=== PATIENT | male | born 1940 | race Caucasian/White ===

== ENCOUNTER → 2023-08-16 08:45 | Outpatient (REF) | payer OTHER, SELFPAY ==
[2023-08-16 10:06] LABS: % Basophils 0.7 % (0-2); % Eosinophils 3.6 % (0-6); % Immature Granulocytes 0.2 % (0-0.5); % Lymphocytes 40.8 % (20.5-51.1); % Monocytes 10.4 % (1.7-9.3); % Neutrophils 44.3 % (42.2-75.2); Absolute Eosinophils 0.2 10^3/uL (0-0.7); Absolute Lymphocytes 1.7 10^3/uL (1.2-3.4); Absolute Monocytes 0.4 10^3/uL (0.1-0.6); Absolute Neutrophils 1.9 10^3/uL (1.4-6.5); Hematocrit 40.4 % (39.0-52.0); Hemoglobin 13.9 g/dL (13.0-18.0); Mean Corp Hgb Conc. 34.4 g/dL (33.0-37.0); Mean Corpuscular Hgb 33.4 pg (27.0-31.0); Mean Corpuscular Volume 97.1 fL (80.0-94.0); Mean Platelet Volume 9.1 fL (7.4-10.4); Nucleated Red Blood Cells % 0 % (-); Platelet Count 119 10^3/uL (130-400); Red Blood Cell Count 4.16 10^6/uL (4.70-6.10); Red Cell Dist. Width 12.9 % (11.5-14.5); White Blood Cell Count 4.2 10^3/uL (4.8-10.8)
[2023-08-16 10:47] LABS: C-Reactive Protein < 5.00 mg/L (0.0-10.00)
[2023-08-16 12:15] LABS: ALT (SGPT) 12 U/L (0-50); AST (SGOT) 30 U/L (17-59); Albumin 3.7 g/dl (3.5-5.0); Alkaline Phosphatase 57 U/L (38-126); Blood Urea Nitrogen 13 mg/dl (9-20); Carbon Dioxide 22 mmol/L (22-30); Chloride 109 mmol/L (98-107); Glucose 106 mg/dl (70-99); Potassium 4.2 mmol/L (3.5-5.1); Sodium 140 mmol/L (135-145); Total Protein 7.9 g/dl (6.3-8.2); eGFR > 60.00
== END ==
LOC: REG 08:45
PROVIDERS: ATTENDING PHYSICIAN Internal Medicine Rheumatology; FAMILY PHYSICIAN Family Medicine
DX: M05.79 Rheumatoid arthritis with rheumatoid factor of multiple sites without organ or systems involvement (principal); M05.9 Rheumatoid arthritis with rheumatoid factor, unspecified; Z51.81 Encounter for therapeutic drug level monitoring
CPT/HCPCS: 36415; 80053; 85025; 86140

== ENCOUNTER → 2023-12-27 09:18 | Outpatient (REF) | payer OTHER, SELFPAY ==
[2023-12-27 10:21] LABS: % Basophils 0.2 % (0-2); % Eosinophils 3.9 % (0-6); % Immature Granulocytes 0.2 % (0-0.5); % Lymphocytes 37.4 % (20.5-51.1); % Neutrophils 48.3 % (42.2-75.2); Absolute Eosinophils 0.2 10^3/uL (0-0.7); Absolute Lymphocytes 1.5 10^3/uL (1.2-3.4); Absolute Monocytes 0.4 10^3/uL (0.1-0.6); Hematocrit 38.3 % (39.0-52.0); Hemoglobin 13.4 g/dL (13.0-18.0); Mean Corpuscular Hgb 33.7 pg (27.0-31.0); Mean Corpuscular Volume 96.2 fL (80.0-94.0); Mean Platelet Volume 8.9 fL (7.4-10.4); Nucleated Red Blood Cells % 0 % (-); Platelet Count 118 10^3/uL (130-400); Red Blood Cell Count 3.98 10^6/uL (4.70-6.10); Red Cell Dist. Width 12.3 % (11.5-14.5); White Blood Cell Count 4.1 10^3/uL (4.8-10.8)
[2023-12-27 11:09] LABS: ALT (SGPT) 15 U/L (0-50); AST (SGOT) 28 U/L (17-59); Albumin 3.9 g/dl (3.5-5.0); Alkaline Phosphatase 58 U/L (38-126); Blood Urea Nitrogen 14 mg/dl (9-20); Calcium 8.8 mg/dl (8.4-10.2); Carbon Dioxide 21 mmol/L (22-30); Chloride 107 mmol/L (98-107); Glucose 105 mg/dl (70-99); HDL Cholesterol 51 mg/dl; LDL Cholesterol, Calculated 73 mg/dl; Potassium 4.2 mmol/L (3.5-5.1); Sodium 143 mmol/L (135-145); Total Bilirubin 0.9 mg/dl (0.2-1.3); Total Cholesterol 152 mg/dl (50-199); Total Protein 8.1 g/dl (6.3-8.2); Triglyceride 143 mg/dl (10-149); Very Low Density Lipoprotein 28 mg/dl (0-30); eGFR > 60.00
[2023-12-27 11:38] LABS: TSH 3.72 uIU/ml (0.47-4.68)
== END ==
LOC: REG 09:18
PROVIDERS: ATTENDING PHYSICIAN Internal Medicine Hematology & Oncology; FAMILY PHYSICIAN Family Medicine
DX: M06.9 Rheumatoid arthritis, unspecified (principal); D46.A Refractory cytopenia with multilineage dysplasia; I25.10 Atherosclerotic heart disease of native coronary artery without angina pectoris; I10 Essential (primary) hypertension
CPT/HCPCS: 36415; 80053; 80061; 84443; 85025

== ENCOUNTER 2024-03-21 23:49 | Emergency (ER) | payer OTHER, SELFPAY ==
[2024-03-22] VITALS: BP 161/85
[2024-03-22] MEDS: ZOFRAN ODT (ORALLY DISINTEGRATING) 4 MG PO (00:25)
[2024-03-22 00:35] LABS: ALT (SGPT) 14 U/L (0-50); AST (SGOT) 32 U/L (17-59); Albumin 4.1 g/dl (3.5-5.0); Alkaline Phosphatase 56 U/L (38-126); Blood Urea Nitrogen 22 mg/dl (9-20); Calcium 8.9 mg/dl (8.4-10.2); Carbon Dioxide 19 mmol/L (22-30); Chloride 107 mmol/L (98-107); Glucose 196 mg/dl (70-99); Lipase 197 U/L (23-300); Potassium 4.9 mmol/L (3.5-5.1); Sodium 138 mmol/L (135-145); Total Bilirubin 0.7 mg/dl (0.2-1.3); Total Protein 8.4 g/dl (6.3-8.2); eGFR 55.19
[2024-03-22 00:41] LABS: % Basophils 0.2 % (0-2); % Eosinophils 1.1 % (0-6); % Immature Granulocytes 0.5 % (0-0.5); % Lymphocytes 32.9 % (20.5-51.1); % Monocytes 4.3 % (1.7-9.3); Absolute Eosinophils 0.1 10^3/uL (0-0.7); Absolute Lymphocytes 2.9 10^3/uL (1.2-3.4); Absolute Monocytes 0.4 10^3/uL (0.1-0.6); Absolute Neutrophils 5.3 10^3/uL (1.4-6.5); Hematocrit 41.8 % (39.0-52.0); Hemoglobin 14.4 g/dL (13.0-18.0); Mean Corp Hgb Conc. 34.4 g/dL (33.0-37.0); Mean Corpuscular Hgb 33.1 pg (27.0-31.0); Mean Corpuscular Volume 96.1 fL (80.0-94.0); Nucleated Red Blood Cells % 0 % (-); Platelet Count 143 10^3/uL (130-400); Red Blood Cell Count 4.35 10^6/uL (4.70-6.10); Red Cell Dist. Width 12.7 % (11.5-14.5); White Blood Cell Count 8.7 10^3/uL (4.8-10.8)
[2024-03-22 03:38] VITALS: BP 121/71
--- NOTE | 2024-03-22 04:12 | ED.GENMED ---
History of Present Illness
General
Chief Complaint: Abdominal Pain
Time Seen by Provider: 03/22/24 02:55
History of Present Illness
History of Present Illness:
83-year-old male with history of dementia, GERD, hyperlipidemia, hypertension presenting for episode of vomiting and diarrhea prior to arrival with associated abdominal discomfort. Patient arrives with family who reports that they [place] a [place]
earlier in the evening, had dinner. When patient got home, said that he felt unwell and had an episode of vomiting and diarrhea. He has since been having some dry heaving, however since arriving to the hospital, notes that his symptoms have
improved. Denies any chest pain, difficulty breathing, abdominal discomfort. Denies any blood in the vomit or diarrhea. Denies additional acute medical complaints
Past History
Past History
ED Past Medical History: COPD, GERD, HTN, Hypercholesterolemia, [place] (25 years ago), Renal failure (After Vancomycin) and Other (Peptic ulcer disease, stomach ulcers, rheumatoid arthritis, skin cancer with subsequent skin grafts, cataracts)
ED Past Surgical History: Cardiac (Cardiac stent), Cholecystectomy, Tonsilectomy and Other (Discectomy, Hernia repair 09/12/2013)
Social History
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
Alcohol: Occasional (4 burbon drinks /week)
Drug: None
Personal:
Living: with family
Employment: Retired
Family History
Family History: Other (Father with COPD, mother with rheumatic fever and VT)
Phy Exam
Physical Exam
Physical Exam:
General: Well-appearing, no clinical signs of dehydration, nontoxic and in no acute distress
HEENT: protecting airway
Neck: appears supple
CV: Normal heart rate, regular rhythm
Resp: No accessory muscle use, no increased work of breathing, lungs clear to auscultation bilaterally
Abd: Soft and non-distended, no tenderness to palpation, normal bowel sounds
Extremities: No deformities, no swelling
Neuro: alert, no focal neurologic deficit
: deferred
Rectal: deferred
Psych: Normal affect
Skin: Intact
Course
Orders/Labs/Results
Orders:
Orders
03/22/24 00:07
Complete Blood Count/With Diff Urgent
Comprehensive Metabolic Panel Urgent
Lipase Urgent
03/22/24 00:08
Ondansetron Orally Disint [Zofran Odt (Orally Disintegrating)] 4 mg .ROUTE .STK-MED ONE
03/22/24 00:25
Ondansetron Orally Disint [Zofran Odt (Orally Disintegrating)] 4 mg PO NOW STA
Abnormal Lab Results
03/22/24
00:07
RBC 4.35 L 10^6/uL
(4.70-6.10)
MCV 96.1 H fL
(80.0-94.0)
MCH 33.1 H pg
(27.0-31.0)
Carbon Dioxide 19 L mmol/L
(22-30)
BUN 22 H mg/dl
(9-20)
Glucose 196 H mg/dl
(70-99)
Total Protein 8.4 H g/dl
(6.3-8.2)
03/22/24 00:07
03/22/24 00:07
Vital Signs
Initial and Last Documented VS:
Initial Vital Signs
Temp Pulse Resp BP Pulse Ox
97.6 F 57 16 161/85 97
03/22/24 00:00 03/22/24 00:00 03/22/24 00:00 03/22/24 00:00 03/22/24 00:00
Last Documented Vital Signs
Temp Pulse Resp BP Pulse Ox
97.6 F 60 20 121/71 93
03/22/24 00:00 03/22/24 03:38 03/22/24 03:38 03/22/24 03:38 03/22/24 03:38
MDM/Problems Addressed
MDM/Problems Addressed:
83-year-old male with history of hypertension, hyperlipidemia, GERD, dementia presenting for episode of vomiting and diarrhea prior to arrival with abdominal discomfort. Vital signs are significant for hypertension, however resolved without
intervention.
On exam patient is resting comfortably, persistently explaining that he is feeling better. Had screening laboratory analysis prior to my assessment, no leukocytosis, normal electrolytes. Patient also received Zofran while in triage. No focal
tenderness to the abdomen and patient is currently asymptomatic. Suspect mild viral gastroenteritis. No current indication for advanced imaging of the abdomen, patient nontoxic and nontender. Feel stable for discharge with continued outpatient
supportive therapy. Patient tolerated p.o. in the emergency department. Return precautions discussed and patient verbalized understanding
*Critical Care Note
Total Time (30-74mins, 75-104mins- exclusive of procedures): Not Applicable
ED Attending Note
-
Portions of this chart may have been created with voice recognition software.� Occasional wrong word or��sound alike� substitutions may have occurred due to the inherent limitations of voice recognition software.
Discharge Plan
Departure
Prescriptions:
No Action
folic acid 1 MG tablet
1 mg PO DAILY
atenolol 25 MG tablet
25 mg PO DAILY
acetaminophen [Tylenol Arthritis] 650 MG tablet extended release
650 tab PO DAILYPRN PRN (Reason: pain)
cholecalciferol (vitamin D3) 1,000 UNITS tablet
1,000 units PO DAILY
atorvastatin 10 MG tablet
10 mg PO HS
L.acidoph,paracasei,B.animalis 1 EACH capsule
1 cap PO DAILY
cyanocobalamin (vitamin B-12) 1,000 MCG tablet
2,000 mcg PO DAILY
esomeprazole magnesium [Nexium] 20 MG capsule,delayed release(DR/EC)
20 mg PO DAILY
fenofibrate nanocrystallized 145 MG tablet
72.5 mg PO DAILY
levothyroxine 25 MCG tablet
25 mcg PO DAILY
magnesium oxide 500 MG capsule
500 mg PO DAILY
Trelegy Ellipta 100-62.5-25
1 tab PO DAILY
cefuroxime axetil 500 MG tablet
500 mg PO BID Qty: 10 0RF
azithromycin [Zithromax] 500 MG tablet
500 mg PO DAILY Qty: 5 0RF
thiamine HCl (vitamin B1) 100 MG tablet
100 mg PO DAILY 0RF
calcium carbonate [Oyster Shell Calcium 500] 500 MG tablet
500 mg PO DAILY 0RF
albuterol sulfate [Proventil HFA] 90 MCG/PUFF HFA aerosol inhaler
1 puff inhalation Q6HPRN PRN (Reason: sob) Qty: 1 1RF
Interventions
Interventions:
*Risk Screen - Suicide Last Done: 03/22/24 00:00
*General Assessment Last Done: 03/22/24 00:00
*Neglect/Abuse Screening Last Done: 03/22/24 00:00
ED- Fall Risk Assessment Last Done: 03/22/24 03:30
KP-Vutgms-Silvfqupdl Assessment Last Done: 03/22/24 03:30
Discharge Date and Time
Print Language: TURKMEN
== END 2024-03-22 04:23 | disposition home or self-care (01) ==
LOC: EMR 23:49
PROVIDERS: EMERGENCY PHYSICIAN Student in an Organized Health Care Education/Training Program; FAMILY PHYSICIAN Family Medicine
DX: A08.4 Viral intestinal infection, unspecified (principal); I10 Essential (primary) hypertension; F03.90 Unspecified dementia, unspecified severity, without behavioral disturbance, psychotic disturbance, mood disturbance, and anxiety; K21.9 Gastro-esophageal reflux disease without esophagitis; E78.00 Pure hypercholesterolemia, unspecified; Z87.891 Personal history of nicotine dependence
CPT/HCPCS: 99283; 80053; 83690; 85025

== ENCOUNTER → 2024-04-23 08:48 | Outpatient (REF) | payer OTHER, SELFPAY ==
[2024-04-23 09:53] LABS: % Basophils 0.2 % (0-2); % Eosinophils 2.7 % (0-6); % Immature Granulocytes 0.2 % (0-0.5); % Lymphocytes 39.4 % (20.5-51.1); % Monocytes 9.1 % (1.7-9.3); % Neutrophils 48.4 % (42.2-75.2); Absolute Eosinophils 0.1 10^3/uL (0-0.7); Absolute Lymphocytes 1.8 10^3/uL (1.2-3.4); Absolute Monocytes 0.4 10^3/uL (0.1-0.6); Absolute Neutrophils 2.2 10^3/uL (1.4-6.5); Hematocrit 42.9 % (39.0-52.0); Hemoglobin 14.6 g/dL (13.0-18.0); Mean Corpuscular Hgb 32.9 pg (27.0-31.0); Mean Corpuscular Volume 96.6 fL (80.0-94.0); Mean Platelet Volume 8.9 fL (7.4-10.4); Nucleated Red Blood Cells % 0 % (-); Platelet Count 134 10^3/uL (130-400); Red Blood Cell Count 4.44 10^6/uL (4.70-6.10); Red Cell Dist. Width 12.3 % (11.5-14.5); White Blood Cell Count 4.5 10^3/uL (4.8-10.8)
[2024-04-23 10:02] LABS: ALT (SGPT) 13 U/L (0-50); AST (SGOT) 27 U/L (17-59); Albumin 3.8 g/dl (3.5-5.0); Alkaline Phosphatase 63 U/L (38-126); Blood Urea Nitrogen 15 mg/dl (9-20); Calcium 8.7 mg/dl (8.4-10.2); Carbon Dioxide 27 mmol/L (22-30); Chloride 104 mmol/L (98-107); Glucose 109 mg/dl (70-99); Potassium 4.9 mmol/L (3.5-5.1); Sodium 141 mmol/L (135-145); Total Bilirubin 0.8 mg/dl (0.2-1.3); Total Protein 8.1 g/dl (6.3-8.2); eGFR 55.19
== END ==
LOC: REG 08:48
PROVIDERS: ATTENDING PHYSICIAN Internal Medicine Rheumatology; FAMILY PHYSICIAN Family Medicine
DX: M05.9 Rheumatoid arthritis with rheumatoid factor, unspecified (principal); Z51.81 Encounter for therapeutic drug level monitoring
CPT/HCPCS: 36415; 80053; 85025; 86140

== ENCOUNTER 2024-04-27 20:49 | Emergency (ER) | payer OTHER, SELFPAY ==
[2024-04-27 21:00] VITALS: BP 156/78
[2024-04-27 21:25] LABS: % Basophils 0.4 % (0-2); % Eosinophils 2.6 % (0-6); % Immature Granulocytes 0.2 % (0-0.5); % Lymphocytes 42.6 % (20.5-51.1); % Monocytes 8.5 % (1.7-9.3); % Neutrophils 45.7 % (42.2-75.2); Absolute Eosinophils 0.1 10^3/uL (0-0.7); Absolute Lymphocytes 2.2 10^3/uL (1.2-3.4); Absolute Monocytes 0.4 10^3/uL (0.1-0.6); Absolute Neutrophils 2.3 10^3/uL (1.4-6.5); Hemoglobin 14.2 g/dL (13.0-18.0); Mean Corp Hgb Conc. 35.5 g/dL (33.0-37.0); Mean Corpuscular Hgb 33.1 pg (27.0-31.0); Mean Corpuscular Volume 93.2 fL (80.0-94.0); Nucleated Red Blood Cells % 0 % (-); Platelet Count 102 10^3/uL (130-400); Red Blood Cell Count 4.29 10^6/uL (4.70-6.10)
[2024-04-27 21:39] LABS: Red Cell Dist. Width 12.5 % (11.5-14.5)
[2024-04-27 21:41] LABS: ALT (SGPT) 13 U/L (0-50); AST (SGOT) 28 U/L (17-59); Albumin 4.1 g/dl (3.5-5.0); Alkaline Phosphatase 54 U/L (38-126); Blood Urea Nitrogen 14 mg/dl (9-20); Calcium 8.5 mg/dl (8.4-10.2); Carbon Dioxide 18 mmol/L (22-30); Chloride 108 mmol/L (98-107); Glucose 206 mg/dl (70-99); Potassium 4.2 mmol/L (3.5-5.1); Sodium 139 mmol/L (135-145); Total Bilirubin 0.8 mg/dl (0.2-1.3); Total Protein 8.1 g/dl (6.3-8.2); White Blood Cell Count 5.1 10^3/uL (4.8-10.8); eGFR 55.19
[2024-04-27 23:23] VITALS: BP 131/105
[2024-04-27 23:26] VITALS: BMI 23.7
[2024-04-27] MEDS: NSS 1000 IV (23:51)
[2024-04-27] MEDS: ZOFRAN 4 MG IV (23:52)
[2024-04-27] MEDS: DILAUDID 0.25 MG IV (23:52)
--- NOTE | 2024-04-28 00:23 | ED.GENMED ---
History of Present Illness
General
Chief Complaint: Abdominal Pain
Source: patient, family and previous hospital records (ED visit 1 month ago for somewhat, similar complaint)
Exam Limitations: none
Time Seen by Provider: 04/27/24 23:21
Nursing documentation reviewed up to this point in time: agreed with
History of Present Illness
History of Present Illness:
This is an 83-year-old gentleman who resides at home with family. He has history of hypertension, hyperlipidemia, CAD/prior ME, peptic ulcer disease, GERD. Remote history of kidney stones.
He presents with complaints of somewhat abrupt onset of moderate to severe left lower quadrant pain accompanied with nausea, dry heaves. Family reports similar episode of pain, nausea and vomiting 1 month ago for which he was evaluated here
March 22. Was given Zofran. Unremarkable laboratory studies. Abdominal pain resolved without other treatment and he was discharged to home.
He has been feeling well since March 22 until return of very similar symptoms tonight. He denies constipation or diarrhea and although ED visit from March 22 notes an episode of diarrhea, the family disputes this.
Patient does have history of mild dementia, somewhat poor short-term memory that has been stable and unchanged.
He has not had a fever nor chills, he denies back pain or flank pain, no dysuria and urgency and or hematuria.
Arrives via EMS and was given Toradol prehospital with moderate but not complete relief of pain. He states nausea has resolved.
According to family, patient does have prior history of kidney stones. He does not recall this.
Unclear if current symptoms feel similar to previous episodes of renal colic which apparently occurred many years ago.
Past History
Past History
ED Past Medical History: Cancer (Basal cell skin carcinoma), COPD, GERD, HTN, Hypercholesterolemia, [place] (25 years ago), Renal failure (After Vancomycin), Other (Kidney stones, mild dementia) and Other (Peptic ulcer disease, stomach ulcers, rheumatoid
arthritis, skin cancer with subsequent skin grafts, cataracts)
ED Past Surgical History: Cardiac (Cardiac stent), Cholecystectomy, Tonsilectomy and Other (Discectomy, Hernia repair 09/12/2013)
Social History
Tobacco: Former smoker (Quit 25 years ago after [place])
Alcohol: Occasional (4 burbon drinks /week)
Drug: None
Personal:
Living: with family
Employment: Retired
Family History
Family History: Other (Father with COPD, mother with rheumatic fever and ME)
Phy Exam
Physical Exam
Physical Exam:
GENERAL: 83-year-old gentleman appears his stated age, awake and alert, pleasant, appears in no acute distress. Several family members are accompanying.
EYE: anicteric
NECK: Supple, nontender, no meningismus, no significant adenopathy.
ENT: oral mucosa is moist. Lips are mildly dry. No rhinorrhea.
CARDIAC: Regular rate and rhythm. no murmur.
LUNGS: Clear breath sounds bilaterally, no acute respiratory distress, no wheezes/rales/rhonchi
ABDOMEN: Rotund, soft, nondistended, minimal tenderness left lower quadrant with deep palpation only, there is a large left scrotal hernia with mild to moderate tenderness lateral proximal aspect of this hernia. It is overall soft, no surrounding
erythema. No r/g, no cvat. Mildly hyperactive bowel sounds.
NEUROLOGICAL: Alert and oriented x3, no focal neuro deficits.
SKIN: Warm and dry, normal color, skin intact. No rash.
MUSCULOSKELETAL: No C/C/E. peripheral pulses are full and equal b/l. No palpable tenderness.
PSYCH: Normal and appropriate interaction.
Course
Orders/Labs/Results
Orders:
Orders
04/27/24 21:13
Complete Blood Count/With Diff Urgent
Comprehensive Metabolic Panel Urgent
04/27/24 23:36
0.9% Sodium Chloride 1000 ml [Nss] 1,000 ml IV BOLUS
HYDROmorphone [Dilaudid] 0.25 mg IV NOW STA
Ondansetron Injectable [Zofran] 4 mg IV NOW STA
04/28/24 00:01
CT Abd/pelvis W Iv Cont Urgent
Reason For Exam: acute severe LLQ pain w N/V. Similar 1 month ago
04/28/24 01:25
Piperacillin/Tazo 3.375 Gram [Zosyn] 3.375 gram in 50 ml IV NOW
04/28/24 01:32
Lactic Acid Urgent
Abnormal Lab Results
04/27/24
21:13
RBC 4.29 L 10^6/uL
(4.70-6.10)
MCH 33.1 H pg
(27.0-31.0)
Plt Count 102 L D 10^3/uL
(130-400)
Chloride 108 H mmol/L
(98-107)
Carbon Dioxide 18 L mmol/L
(22-30)
Glucose 206 H mg/dl
(70-99)
04/27/24 21:13
04/27/24 21:13
Vital Signs
Initial and Last Documented VS:
Initial Vital Signs
Temp Pulse Resp BP Pulse Ox
98.2 F 55 18 156/78 94
04/27/24 21:00 04/27/24 21:00 04/27/24 21:00 04/27/24 21:00 04/27/24 21:00
Last Documented Vital Signs
Temp Pulse Resp BP Pulse Ox
98.5 F 62 16 123/55 93
04/27/24 23:23 04/28/24 03:13 04/28/24 03:13 04/28/24 03:13 04/28/24 03:13
MDM/Problems Addressed
Differential Diagnosis Includes:
Concern for renal colic/left ureteric stone, diverticulitis, incarcerated left scrotal hernia, small bowel obstruction, colitis, ischemic bowel.
Overall appears comfortable but does complain of some moderate persistent pain. Will give a small IV dose of Dilaudid and initiate IV fluids.
Labs thus far unremarkable save for moderately elevated random glucose of 200.
Will check urinalysis and plan for CT abdomen pelvis.
Chronic conditions affecting care: HTN, CAD, Previous abdomnial surgery, Kidney disease (Mild chronic kidney disease. Remote history of kidney stones) and Other (Known chronic large left scrotal hernia)
*Radiology
Radiology exam reviewed: radiology read reviewed
*Pulse Oximetry
Patient hypoxic: no
*Critical Care Note
Total Time (30-74mins, 75-104mins- exclusive of procedures): Not Applicable
Update Note
Update Note:
01:15
Patient feeling improved, requesting to go home.
He has no further abdominal tenderness. He is noted to have large left inguinal hernia which is chronic in nature. Mild tenderness lateral proximal aspect of this hernia.
CAT scan shows large left inguinal hernia containing short segment of descending colon with no evidence of bowel obstruction however colonic diverticulosis including diverticula within the hernia sac and mild inflammatory changes which could
represent mild acute diverticulitis. Incarceration is much less likely as patient is now pain-free and no significant tenderness with palpation to this hernia.
With concern for potential diverticulitis will give an IV dose of Zosyn.
Lactic acid is pending.
Will continue to observe.
03:15
Patient continues to feel well and is eager to be discharged to home.
No return of abdominal pain, no inguinal pain.
Will place on 1 week course of Augmentin for early diverticulitis.
Recommend limiting diet to clear liquids over the next 2 days, slowly advance to soft bland foods.
Will refer to GI as well as general surgery for follow-up.
Return precautions discussed.
ED Attending Note
-
Portions of this chart may have been created with voice recognition software.� Occasional wrong word or��sound alike� substitutions may have occurred due to the inherent limitations of voice recognition software.
Discharge Plan
Departure
Patient Disposition: Home (Routine Discharge)
Date of Disposition: 04/28/24
Time of Disposition: 03:24
Patient with high blood pressure during this ER visit?: No
Condition: Good
Discharge Problem:
Acute diverticulitis, large left inguinal hernia
Instructions: Clear Liquid Diet, Diverticulitis - Discharge instructions
Prescriptions:
New
amoxicillin-pot clavulanate 875-125 mg tablet
1 tab PO BID Qty: 14 0RF
No Action
folic acid 1 MG tablet
1 mg PO DAILY
atenolol 25 MG tablet
25 mg PO DAILY
acetaminophen [Tylenol Arthritis] 650 MG tablet extended release
650 tab PO DAILYPRN PRN (Reason: pain)
cholecalciferol (vitamin D3) 1,000 UNITS tablet
1,000 units PO DAILY
atorvastatin 10 MG tablet
10 mg PO HS
naomy Murdock,B.animalis 1 EACH capsule
1 cap PO DAILY
cyanocobalamin (vitamin B-12) 1,000 MCG tablet
2,000 mcg PO DAILY
esomeprazole magnesium [Nexium] 20 MG capsule,delayed release(DR/EC)
20 mg PO DAILY
fenofibrate nanocrystallized 145 MG tablet
72.5 mg PO DAILY
levothyroxine 25 MCG tablet
25 mcg PO DAILY
magnesium oxide 500 MG capsule
500 mg PO DAILY
Trelegy Ellipta 100-62.5-25
1 tab PO DAILY
cefuroxime axetil 500 MG tablet
500 mg PO BID Qty: 10 0RF
azithromycin [Zithromax] 500 MG tablet
500 mg PO DAILY Qty: 5 0RF
thiamine HCl (vitamin B1) 100 MG tablet
100 mg PO DAILY 0RF
calcium carbonate [Oyster Shell Calcium 500] 500 MG tablet
500 mg PO DAILY 0RF
albuterol sulfate [Proventil HFA] 90 MCG/PUFF HFA aerosol inhaler
1 puff inhalation Q6HPRN PRN (Reason: sob) Qty: 1 1RF
Referrals:
Cheikh Busch MD [Family Provider] - Call in 1-3 days for appt
Tino Goodman MD [Active] - Call in 1-3 days for appt
Sangeeta Kauffman DO [Active] - Call in 1-3 days for appt
Activity Restrictions/Additional Instructions:
Over the next 2 days I want you to limit your diet to clear liquids only. Thereafter advance to soft bland foods as tolerated.
You have been prescribed Augmentin to be taken twice daily over the next week for treatment of acute mild diverticulitis.
Follow-up with your primary care physician for recheck.
You have also been referred to general surgery as well as gastroenterology for further evaluation of hernia as well as diverticulitis.
Interventions
Interventions:
*General Assessment Last Done: 04/27/24 23:27
ED- Fall Risk Assessment Last Done: 04/28/24 00:54
*ED COVID-19 Vaccine History Last Done: 04/27/24 23:27
*Nursing Disposition Last Done: 04/28/24 03:34
WX-Jsoqrm-Coeyteohak Assessment Last Done: 04/27/24 23:29
Discharge Date and Time
Discharge Date/Time: 04/28/24 03:34
Print Language: [place] LUCI[place]
[2024-04-28 01:53] VITALS: BP 120/53
[2024-04-28] MEDS: ZOSYN 50 IV (01:53)
[2024-04-28 02:31] LABS: Lactic Acid 1.4 mmol/L (0.7-2.0)
[2024-04-28 03:13] VITALS: BP 123/55
== END 2024-04-28 03:34 | disposition home or self-care (01) ==
LOC: EMR 20:49
PROVIDERS: Student in an Organized Health Care Education/Training Program; EMERGENCY PHYSICIAN Emergency Medicine; FAMILY PHYSICIAN Family Medicine
DX: K57.32 Diverticulitis of large intestine without perforation or abscess without bleeding (principal); K40.90 Unilateral inguinal hernia, without obstruction or gangrene, not specified as recurrent; E78.00 Pure hypercholesterolemia, unspecified; I10 Essential (primary) hypertension; I25.10 Atherosclerotic heart disease of native coronary artery without angina pectoris; I25.2 Old myocardial infarction; F03.A0 Unspecified dementia, mild, without behavioral disturbance, psychotic disturbance, mood disturbance, and anxiety; J44.9 Chronic obstructive pulmonary disease, unspecified; K21.9 Gastro-esophageal reflux disease without esophagitis; M06.9 Rheumatoid arthritis, unspecified; Z82.49 Family history of ischemic heart disease and other diseases of the circulatory system; Z85.828 Personal history of other malignant neoplasm of skin; Z87.442 Personal history of urinary calculi; Z87.891 Personal history of nicotine dependence; Z90.49 Acquired absence of other specified parts of digestive tract; Z95.5 Presence of coronary angioplasty implant and graft
CPT/HCPCS: 99284; 74177; 80053; 83605; 85025; Q9967

== ENCOUNTER 2024-05-03 19:51 | Emergency (ER) | payer OTHER, SELFPAY ==
[2024-05-03 19:54] VITALS: BP 177/98
[2024-05-03 19:58] VITALS: BMI 24.2
[2024-05-03 20:00] VITALS: BP 128/96
[2024-05-03 20:25] LABS: % Basophils 0.2 % (0-2); % Immature Granulocytes 0.3 % (0-0.5); % Lymphocytes 30.7 % (20.5-51.1); % Monocytes 5.7 % (1.7-9.3); % Neutrophils 61.1 % (42.2-75.2); ALT (SGPT) 14 U/L (0-50); AST (SGOT) 28 U/L (17-59); Absolute Eosinophils 0.2 10^3/uL (0-0.7); Absolute Lymphocytes 2.8 10^3/uL (1.2-3.4); Absolute Monocytes 0.5 10^3/uL (0.1-0.6); Absolute Neutrophils 5.6 10^3/uL (1.4-6.5); Albumin 3.6 g/dl (3.5-5.0); Alkaline Phosphatase 79 U/L (38-126); Blood Urea Nitrogen 11 mg/dl (9-20); Calcium 8.6 mg/dl (8.4-10.2); Carbon Dioxide 22 mmol/L (22-30); Chloride 106 mmol/L (98-107); Estimated Creatinine Clearance 45 ml/min; Glucose 164 mg/dl (70-99); Lipase 157 U/L (23-300); Mean Corp Hgb Conc. 34.1 g/dL (33.0-37.0); Mean Corpuscular Hgb 32.6 pg (27.0-31.0); Mean Corpuscular Volume 95.3 fL (80.0-94.0); Mean Platelet Volume 9.2 fL (7.4-10.4); Nucleated Red Blood Cells % 0 % (-); Platelet Count 151 10^3/uL (130-400); Red Cell Dist. Width 12.6 % (11.5-14.5); Sodium 138 mmol/L (135-145); Total Bilirubin 0.7 mg/dl (0.2-1.3); White Blood Cell Count 9.2 10^3/uL (4.8-10.8); eGFR > 60.00
[2024-05-03] MEDS: TORADOL 15 MG IV (20:26)
[2024-05-03] MEDS: ZOFRAN 4 MG IV (20:26)
--- NOTE | 2024-05-03 20:37 | ED.GENMED ---
History of Present Illness
<Jorje Monahan PA-C - Last Filed: 05/04/24 00:37>
General
Chief Complaint: Abdominal Pain
Source: patient
Exam Limitations: none
Time Seen by Provider: 05/03/24 20:06
History of Present Illness
History of Present Illness:
83-year-old male presents with severe lower left abdominal pain. He was here couple nights ago found to have an inguinal hernia without obvious signs of incarceration or obstruction. Thought to have diverticulitis within hernia. He now notes more
severe pain and now vomiting. He notes increased swelling and firmness even into his scrotum. No other complaints at this time
Past History
<Jorje Monahan PA-C - Last Filed: 05/04/24 00:37>
Past History
ED Past Medical History: Cancer (Basal cell skin carcinoma), COPD, GERD, HTN, Hypercholesterolemia, PR (25 years ago), Renal failure (After Vancomycin), Other (Kidney stones, mild dementia) and Other (Peptic ulcer disease, stomach ulcers, rheumatoid
arthritis, skin cancer with subsequent skin grafts, cataracts)
ED Past Surgical History: Cardiac (Cardiac stent), Cholecystectomy, Tonsilectomy and Other (Discectomy, Hernia repair 09/12/2013)
Social History
Tobacco: Former smoker (Quit 25 years ago after PR)
Alcohol: Occasional (4 burbon drinks /week)
Drug: None
Personal:
Living: with family
Employment: Retired
Family History
Family History: Other (Father with COPD, mother with rheumatic fever and PR)
Phy Exam
<Jorje Monahan PA-C - Last Filed: 05/04/24 00:37>
Physical Exam
Physical Exam:
General: Well-appearing male no acute respiratory distress
HEENT: Normocephalic atraumatic
Heart: Regular rate and rhythm no murmurs lungs: Clear no wheeze
Abdomen soft tender to the left lower quadrant and scrotum. There is a firm tender hernia noted in the inguinal region and the left side of the scrotum is swollen and firm.
Extremities: No cyanosis
Course
<Jorje Monahan PA-C - Last Filed: 05/04/24 00:37>
Orders/Labs/Results
Orders:
Orders
05/03/24 20:01
Complete Blood Count/With Diff Urgent
Comprehensive Metabolic Panel Urgent
Lipase Urgent
05/03/24 20:21
CT Abd/pelvis W Iv Cont Urgent
Comment:
Reason For Exam: inguinal pain, vomiting
Ketorolac [Toradol] 15 mg IV NOW STA
Ondansetron Injectable [Zofran] 4 mg IV NOW STA
05/04/24 00:17
Consult Surgery [SURGICAL CONSULT] Urgent
Consulting Provider: Mp Banks
Was physician already notified: Yes
Reason for consult: inguinal hernia
Abnormal Lab Results
05/03/24
20:01
RBC 4.30 L 10^6/uL
(4.70-6.10)
MCV 95.3 H fL
(80.0-94.0)
MCH 32.6 H pg
(27.0-31.0)
Glucose 164 H mg/dl
(70-99)
05/03/24 20:01
05/03/24 20:01
Vital Signs
Initial and Last Documented VS:
Initial Vital Signs
Temp Pulse Resp BP Pulse Ox
99.4 F 82 21 177/98 95
05/03/24 19:54 05/03/24 19:54 05/03/24 19:54 05/03/24 19:54 05/03/24 19:54
Last Documented Vital Signs
Temp Pulse Resp BP Pulse Ox
98.2 F 66 18 129/79 96
05/04/24 11:54 05/04/24 11:54 05/04/24 11:54 05/04/24 11:54 05/04/24 11:54
<Easton Robertson MD - Last Filed: 05/04/24 16:42>
Orders/Labs/Results
Orders:
Orders
05/03/24 20:01
Complete Blood Count/With Diff Urgent
Comprehensive Metabolic Panel Urgent
Lipase Urgent
05/03/24 20:21
CT Abd/pelvis W Iv Cont Urgent
Comment:
Reason For Exam: inguinal pain, vomiting
Ketorolac [Toradol] 15 mg IV NOW STA
Ondansetron Injectable [Zofran] 4 mg IV NOW STA
05/04/24 00:17
Consult Surgery [SURGICAL CONSULT] Urgent
Consulting Provider: Mp Banks
Was physician already notified: Yes
Reason for consult: inguinal hernia
Abnormal Lab Results
05/03/24
20:01
RBC 4.30 L 10^6/uL
(4.70-6.10)
MCV 95.3 H fL
(80.0-94.0)
MCH 32.6 H pg
(27.0-31.0)
Glucose 164 H mg/dl
(70-99)
05/03/24 20:01
05/03/24 20:01
Vital Signs
Initial and Last Documented VS:
Initial Vital Signs
Temp Pulse Resp BP Pulse Ox
99.4 F 82 21 177/98 95
05/03/24 19:54 05/03/24 19:54 05/03/24 19:54 05/03/24 19:54 05/03/24 19:54
Last Documented Vital Signs
Temp Pulse Resp BP Pulse Ox
98.2 F 66 18 129/79 96
05/04/24 11:54 05/04/24 11:54 05/04/24 11:54 05/04/24 11:54 05/04/24 11:54
<Jorje Monahan PA-C - Last Filed: 05/04/24 00:37>
MDM/Problems Addressed
Differential Diagnosis Includes:
Left inguinal pain known inguinal hernia now vomiting. Consider worsening hernia versus incarceration versus electrolyte abnormality versus bowel obstruction
Check labs. Repeat check CT. Pain medicine and nausea medicine ordered
<Easton Robertson MD - Last Filed: 05/04/24 16:42>
*Critical Care Note
Total Time (30-74mins, 75-104mins- exclusive of procedures): Not Applicable
<Jorje Monahan PA-C - Last Filed: 05/04/24 00:37>
Update Note
Update Note:
Patient reevaluated feeling improved after Toradol and Zofran. CT shows known left inguinal hernia but no sign of incarceration. Discussed with emergency room attending saw the patient as well. Discussed with general surgery. Will have general
surgery take a look at the patient in the morning. He may be intermittently incarcerating his hernia. No sign of such right now. But given his third visit general surgery to see.
ED Attending Note
<Jorje Monahan PA-C - Last Filed: 05/04/24 00:37>
-
Portions of this chart may have been created with voice recognition software.� Occasional wrong word or��sound alike� substitutions may have occurred due to the inherent limitations of voice recognition software.
<Easton Robertson MD - Last Filed: 05/04/24 16:42>
ED Attending Note
Patient seen and examined by attending physician: Yes
I performed the substantive portion of visit, reviewed & personally made and approve the management plan that is documented in note by myself or RANI.: Yes
ED Attending Note:
83-year-old male recurrent episodes of what is described as recurrent severe left groin pain swelling with nausea and vomiting. Was here in February was here a week ago the same episode tonight. Initially had a hard mass to the left groin
consistent with a hernia. Initially unable to reduce. Was given pain management nausea management labs CT scan which were all stable. On reevaluation the left inguinal area is soft. Is not fully reducible however it is soft and nontender.
Likely has recurrent episodes of transient incarceration. Is associated with nausea and vomiting. Stable at this time. No indication for emergent surgery. However family is frustrated over the recurrent episodes. Will observe overnight and
surgery will evaluate in the morning
Discharge Plan
Departure
Patient Disposition: Home (Routine Discharge)
Date of Disposition: 05/04/24
Time of Disposition: 09:02
Patient with high blood pressure during this ER visit?: No
Discharge Problem:
Hernia
Instructions: Groin hernias
Prescriptions:
New
acetaminophen 325 mg tablet
650 mg PO Q4HPRN PRN (Reason: mild pain) Qty: 1 0RF
polyethylene glycol 3350 17 gram powder in packet
17 g PO DAILYPRN PRN (Reason: constipation) Qty: 1 0RF
No Action
atenolol 25 MG tablet
25 mg PO DAILY
atorvastatin 10 MG tablet
10 mg PO HS
esomeprazole magnesium [Nexium] 20 MG capsule,delayed release(DR/EC)
20 mg PO DAILY
fenofibrate nanocrystallized 145 MG tablet
72.5 mg PO DAILY
levothyroxine 25 MCG tablet
25 mcg PO DAILY
donepezil 5 mg Tablet
5 mg PO HS
aspirin 81 mg Tablet,Delayed Release (Dr/Ec)
81 mg PO Q48H
sertraline 50 mg Tablet
50 mg PO DAILY
Referrals:
Mp Banks MD [Active] -
Cheikh Busch MD [Family Provider] -
Activity Restrictions/Additional Instructions:
Please follow-up with general surgery as advised by the surgeon. Return immediately for worsening pain, vomiting or any other concerns.
Interventions
Interventions:
*Risk Screen - Suicide Last Done: 05/03/24 19:54
*General Assessment Last Done: 05/03/24 19:54
*Neglect/Abuse Screening Last Done: 05/03/24 19:54
ED- Fall Risk Assessment Last Done: 05/04/24 03:00
*ED COVID-19 Vaccine History Last Done: 05/04/24 03:00
*Nursing Disposition Last Done: 05/04/24 11:54
KF-Sbfxvm-Ckhtszvlue Assessment Last Done: 05/04/24 09:00
Discharge Date and Time
Discharge Date/Time: 05/04/24 11:40
Print Language: PRYDEINIG
[2024-05-03 21:00] VITALS: BP 114/69
[2024-05-03 23:08] VITALS: BP 112/87
[2024-05-04] VITALS (11 sets, daily range): BP systolic 105–139; BP diastolic 52–87
--- NOTE | 2024-05-04 10:37 | CON.GS ---
Addendum entered and electronically signed by Mp Banks MD 05/04/24 12:28:
Patient seen and examined. Agree with assessment plan as documented below.
Patient is an 83 yo M with a PMH of HTN, HLD, CAD c/b SD s/p PCI with stent, COPD, nonmelanotic skin cancer s/p excision with skin graft, CKD, PUD, RA, dementia, s/p laparoscopic cholecystectomy, s/p discectomy, and s/p open RIGHT ankle hernia
repair [place] [address] Hackett. Mr. Holguin has had a known LEFT inguinal hernia for years. He previously saw Dr. Abrams in 2019 in the ED; his hernia was reduced and he has since followed a watchful waiting approach. Over the past few weeks "Deric"Tushar has had worsening issues with lower abdominal pain and discomfort. He has also had increased LEFT groin swelling. He has presented to the ED now 3 times during which time his hernia has been reduced and he has been discharged. He is
scheduled for outpatient follow-up with Dr. Mejia on 05/08/2024. He lives at home with his . She reports the above-noted symptoms as well as some associated nausea and vomiting. She does report continued flatus and stools. No clear history
of constipation. No reported symptoms on the RIGHT.
Gen: NAD
Abd: soft, NT/ND, non-peritoneal, large palpable inguinoscrotal hernia on LEFT, soft, reducible, non-tender, prior RIGHT groin incision well healed
Labs and CT scan were reviewed.
Patient is an 83 yo M p/w symptomatic reducible LEFT inguinal hernia
Natural history and pathophysiology of inguinal hernias was briefly discussed with the patient as well as his . Options for management reviewed. Given his persistent symptoms recommend operative repair. Given the reducible nature of his
hernia without any signs or symptoms concerning for strangulation or obstruction this can be for performed on an outpatient basis. Options for surgical repair were briefly considered. Given his general medical condition and size of his hernia
would recommend an open approach.
Plan for an open LEFT inguinal hernia repair with mesh. The procedure itself, as well as the risks, benefits, and alternatives was discussed. Specifically, we discussed the risk of bleeding, infection, injury to surrounding structures (bowel,
nerves, blood supply the testicle, vas deferens), chronic groin discomfort, and recurrence. Postprocedural recovery including SDS procedure, pain management, and the need for 4 weeks no heavy lifting or strenuous activities was discussed. We
discussed the importance of avoiding constipation both pre and postoperatively. Recommend MiraLAX daily. Discussed the use of a hernia/truss belt, however, this may be logistically difficult given the size of his hernia and ability to
comply/physically placed this belt. All questions answered. Consent signed. Will have my office reach out on Sunday to coordinate timing for repair.
-- Open LEFT inguinal hernia repair with mesh, to be scheduled as an outpatient, will have office reach out tomorrow
-- Okay to discharge from surgical perspective
updated by phone and phone consent obtained.
Original Note:
Medical History
-
Chief Complaint: abdominal pain
History of Present Illness:
Mr Holguin is an 83 yo male with a h/o right inguinal hernia repair with prior presentations for evaluation of an incarceration of the left inguinal hernia in 2019 which was able to be reduced at that time with recent presentation earlier this month
for left lower abdominal pain with antibiotics given for diverticulitis. He presents again for the same pain. On exam, a large inguinal hernia is noted which is mildly tender but soft and able to be reduced. He is forgetful but does denies nausea or
vomiting. He denies diffuclty passing stools. He denies pain currently.
Past Medical History
Past Medical History: CAD, Cancer (skin Ca with grafts), COPD, Diverticulitis (tx 04/28/2024), GERD, HTN, Hypercholesterolemia, SD (25 years ago) and Other (CKD, PUD, RA, dementia)
Past Surgical History: Cardiac (stents), Cholecystectomy, Hernia Repair (right inguinal hernia repair 2013), Orthopedic (discectomy) and Tonsilectomy
Social History
Tobacco: Former Smoker
Alcohol: Occasional (bourbon several times a week)
Personal:
Living: With Family
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
Family History
Family History: Reviewed & Not Pertinent
Allergies / Home Medications
Allergy/AdvReac Type Severity Reaction Status Date / Time
abciximab [From Reopro] Allergy Unknown Verified 05/03/24 19:54
ticlopidine HCl [From Ticlid] Allergy Unknown Verified 05/03/24 19:54
vancomycin Allergy Renal Verified 05/03/24 19:54
failure
�Medication �Instructions �Recorded �Confirmed �Type
atenolol 25 mg tablet 25 mg PO DAILY Blood pressure 04/05/16 05/03/24 History
atorvastatin 10 mg tablet 10 mg PO HS High cholesterol 11/28/16 05/03/24 History
esomeprazole magnesium 20 mg 20 mg PO DAILY Gastrointestinal 08/12/17 05/03/24 History
capsule,delayed release (Nexium) issue
fenofibrate nanocrystallized 145 72.5 mg PO DAILY High cholesterol 08/31/19 05/03/24 History
mg tablet
levothyroxine 25 mcg tablet 25 mcg PO DAILY Thyroid 08/31/19 05/03/24 History
aspirin 81 mg tablet,delayed 81 mg PO Q48H 05/03/24 05/03/24 History
release
donepezil 5 mg tablet 5 mg PO HS 05/03/24 05/03/24 History
sertraline 50 mg tablet 50 mg PO DAILY 05/03/24 05/03/24 History
Review of Systems
-
Unable to obtain full review of systems at this time due to: Dementia
History Source: Patient
All other systems: Negative unless noted
A 10 point review of systems was completed, and was negative except as per HPI.
Physical Exam
Vital Signs
Temp Pulse Resp BP Pulse Ox
99.4 F 59 15 126/71 89
05/03/24 19:54 05/04/24 09:00 05/04/24 09:00 05/04/24 09:00 05/04/24 09:00
05/03/24 05/04/24 05/05/24
06:59 06:59 06:59
Actual Weight 70 kg
Body Mass Index (BMI) 24.2
Lab Results
05/03/24 20:
05/03/24 20:
WBC 9.2 10^3/uL (4.8-10.8) 05/03/24 20:
Hgb 14.0 g/dL (13.0-18.0) 05/03/24 20:
Hct 41.0 % (39.0-52.0) 05/03/24 20:
Plt Count 151 10^3/uL (130-400) D 05/03/24 20:
Abs Immat Gran (auto) 0.0 10^3/uL (0-0.05) 05/03/24 20:
Neutrophils % 61.1 % (42.2-75.2) 05/03/24 20:
Physical Exam
General: Well Developed and Well Nourished
HEENT: Moist Mucous Membranes
Respiratory: Non Labored Respirations
GI: Soft, Non Distended and Tender (to hernia site, mild)
Genito-urinary: Inguinal Hernia (left: soft, reducible)
Skin: Warm, Dry and Other (no overlying skin changes over hernia)
Neuro: Awake, Alert and AO x 3
Psych: Calm
Data Reviewed
-
CT Scan: Image Personally Visualized and interpreted, Report Reviewed by me, Discussed with Physician, Discussed with Nurse, Discussed with Patient and Discussed with Family ( Geetha by phone)
Labs: Labs Reviewed by me, Discussed with Physician, Discussed with Nurse, Discussed with Patient and Discussed with Family
Old Records: Reviewed
Assessment / Plan
-
Mr Holguin is an 83 yo male with a h/o right inguinal hernia repair with prior presentations for evaluation of an incarceration of the left inguinal hernia in 2019 which was able to be reduced at that time with recent presentation earlier this month
for left lower abdominal pain with antibiotics given for diverticulitis. He presents again for the same pain. On exam, a large inguinal hernia is noted which is mildly tender but soft and able to be reduced. CT imaging reviewed with left inguinal
hernia containing a nonobstructing loop of colon with some associated fluid in the hernia sac. AFVSS. No leukocytosis.
No incarceration/strangulation, hernia soft and reducible. Will not require emergent surgery but would recommend surgical hernia repair in the near future given recurrent symptoms. This was discussed with patient and , will plan hernia repair as
an outpatient.
Ok to discharge from the Ed
--- NOTE | 2024-05-04 11:35 | EDRN ---
Reviewed discharge instructions with patient. Verbalized understanding. Taken to lobby in wheelchair.
== END 2024-05-04 11:40 | disposition home or self-care (01) ==
LOC: EMR 19:51
PROVIDERS: CONSULT PHYSICIAN Surgery; EMERGENCY PHYSICIAN Emergency Medicine; FAMILY PHYSICIAN Family Medicine
DX: K40.90 Unilateral inguinal hernia, without obstruction or gangrene, not specified as recurrent (principal); E78.00 Pure hypercholesterolemia, unspecified; I12.9 Hypertensive chronic kidney disease with stage 1 through stage 4 chronic kidney disease, or unspecified chronic kidney disease; N18.9 Chronic kidney disease, unspecified; F03.A0 Unspecified dementia, mild, without behavioral disturbance, psychotic disturbance, mood disturbance, and anxiety; I25.10 Atherosclerotic heart disease of native coronary artery without angina pectoris; I25.2 Old myocardial infarction; J44.9 Chronic obstructive pulmonary disease, unspecified; K21.9 Gastro-esophageal reflux disease without esophagitis; M06.9 Rheumatoid arthritis, unspecified; Z85.828 Personal history of other malignant neoplasm of skin; Z87.11 Personal history of peptic ulcer disease; Z87.442 Personal history of urinary calculi; Z87.891 Personal history of nicotine dependence; Z90.49 Acquired absence of other specified parts of digestive tract; Z95.5 Presence of coronary angioplasty implant and graft
CPT/HCPCS: 96374; 96375; 99284; 74177; 80053; 83690; 85025; Q9967

== ENCOUNTER 2024-05-15 06:28 | Day surgery (SDC) | payer OTHER, SELFPAY ==
[2024-05-15 10:30] VITALS: BMI 22.0
[2024-05-15 10:50] VITALS: BP 131/69
[2024-05-15] MEDS: NORMOSOL-R/PLASMALYTE-A 1000 IV (11:00)
[2024-05-15] MEDS: TYLENOL 1000 MG PO (11:23)
[2024-05-15 11:24] VITALS: BMI 22.0
[2024-05-15 13:56] VITALS: BP 103/61
[2024-05-15 14:00] VITALS: BP 116/47
[2024-05-15 14:15] VITALS: BP 119/94
[2024-05-15 14:33] VITALS: BP 117/65
== END 2024-05-15 15:40 | disposition home or self-care (01) ==
LOC: SDS 06:28
PROVIDERS: ATTENDING PHYSICIAN Surgery
DX: K40.90 Unilateral inguinal hernia, without obstruction or gangrene, not specified as recurrent (principal)
CPT/HCPCS: 49525; C1781

== ENCOUNTER 2024-08-13 13:10 | Observation (INO) | payer OTHER, SELFPAY ==
[2024-08-13] VITALS (7 sets, daily range): BP systolic 109–150; BP diastolic 68–79; BMI 22.1
--- NOTE | 2024-08-13 09:17 | ED.GENMED ---
History of Present Illness
General
Chief Complaint: Musculo-Skeletal Complaint
Source: patient
Time Seen by Provider: 08/13/24 09:01
History of Present Illness
History of Present Illness:
83-year-old male presents to the emergency room complaining of chest pain. Patient states he has a pressure in the left side of his chest which radiates to his left arm. Discomfort began about an hour prior to arrival. He denies associated
shortness of breath, nausea, abdominal pain or diaphoresis. Patient does have a cardiac history. He had an FL about 25 to 30 years ago. Patient's states he does have a stent. He does take a baby aspirin a day but does not always remember to
take it. He did have pocket stitcher but has not seen them in about 8 years.
Past History
Past History
ED Past Medical History: Cancer (Basal cell skin carcinoma), COPD, GERD, HTN, Hypercholesterolemia, FL (25 years ago), Renal failure (After Vancomycin), Other (Kidney stones, mild dementia) and Other (Peptic ulcer disease, stomach ulcers, rheumatoid
arthritis, skin cancer with subsequent skin grafts, cataracts)
ED Past Surgical History: Cardiac (Cardiac stent), Cholecystectomy, Tonsilectomy and Other (Discectomy, Hernia repair 09/12/2013)
Social History
Tobacco: Former smoker (Quit 25 years ago after FL)
Alcohol: Occasional (4 burbon drinks /week)
Drug: None
Personal:
Living: with family
Employment: Retired
Family History
Family History: Other (Father with COPD, mother with rheumatic fever and FL)
Phy Exam
Physical Exam
Physical Exam:
General: Awake, Alert, Oriented X3. No acute distress. Appears stated age
Vitals: unremarkable
Head: Atraumatic
Eyes: Pupils equal, EOMI
Throat: Airway intact, no exudates, poor dentition
Neck: Trachea midline
Lungs: Clear and equal b/l
Heart: Regular rate, no murmurs
Abd: Soft, Nontender, No pulsatile mass
Neuro: Nonfocal
Skin: Warm, dry, no rash
Extremities: pulses equal b/l, no edema
Course
Orders/Labs/Results
Orders:
Orders
08/13/24 08:52
Electrocardiogram (*1) Urgent
Reason for Study: Other
Other Reason for Exam: left arm pain for 30 minutes
EKG- Treatment ONCE
08/13/24 09:15
Aspirin Chewable [Low Strength Aspirin] 324 mg PO NOW STA
Nitroglycerin Sublingual [Nitrostat (Sublingual)] 0.4 mg SL NOW STA
08/13/24 09:16
Electrocardiogram (*1) Stat
Reason for Study: Other
Other Reason for Exam: chest pain
Cardiac Monitoring- Treatment ONCE
EKG- Treatment ONCE
CR Chest - 2 Views Urgent
Comment:
Reason For Exam: chest pain
08/13/24 09:25
Complete Blood Count/With Diff Urgent
Comprehensive Metabolic Panel Urgent
Magnesium Urgent
Troponin I Urgent
08/13/24 Lunch
Cholesterol Lowering
At Your Request: Full Participation
Cholesterol Lowering: Sodium, 2 Gram
08/13/24 11:51
Troponin I Urgent
08/13/24 12:34
Admit/Transfer Patient As Directed
Co-Sign Provider:
Level of Care: Observation services
Assign to:: Telemetry
Physician / Group: Hospitalist: Moshe
Diagnosis: Chest Pain
Reason for Telemetry: Chest Pain syndromes
Date to Stop Telemetry: 08/15/24
Time to Stop Telemetry: 11:00
PRN Pain Medication Management As Directed
May give lesser potent ordered pain med per pt: Yes
preference::
Protocol:: Medication orders for pain may be administered in a
manner that supports deferring to patient preference
when the pt is:
- Requesting an ordered lesser potent pain medication.
Least to most potent pain medications are defined
as: acetaminophen < NSAID < tramadol < opioids
(morphine, oxycodone, hydromorphone).
- Requesting a lesser dose of the same medication IF
ORDERED.
- Requesting a less intrusive route of administration
if both routes are prescribed by the provider (PO <
IV).
08/13/24 12:38
Code Status As Directed
Resuscitation Status: Full Code
Docusate W/Senna [Senokot-S] 1 tablet PO BIDPRN PRN
Polyethylene Glycol Powder [Miralax] 17 grams PO DAILYPRN PRN
Activity As Directed
Activity Level: As Tolerated
Vital Signs As Directed
Frequency: Per unit guidelines
08/13/24 12:42
CARDIOLOGY CONSULT Routine
Consulting Provider: Scott Isabel
Was physician already notified: Yes
Reason for consult: chest pain
08/13/24 18:00
Troponin I Q6H
08/14/24 00:00
Troponin I Q6H
08/14/24 06:00
Lexiscan Stress [Nuclear lexiscan Stress Test] IN AM
Reason for Study: chest pain
NPO
Allow oral meds: Yes
Allow clear liquids: No
Troponin I Q6H
08/14/24 12:00
Troponin I Q6H
08/14/24 18:00
Troponin I Q6H
08/15/24 11:00
DC Protocol for Telemetry ONCE
Abnormal Lab Results
08/13/24
09:25
WBC 4.1 L 10^3/uL
(4.8-10.8)
RBC 3.93 L 10^6/uL
(4.70-6.10)
Hct 38.5 L %
(39.0-52.0)
MCV 98.0 H fL
(80.0-94.0)
MCH 33.3 H pg
(27.0-31.0)
Plt Count 115 L 10^3/uL
(130-400)
Neutrophils % 37.2 L %
(42.2-75.2)
Chloride 112 H mmol/L
(98-107)
Glucose 104 H mg/dl
(70-99)
08/13/24 09:25
08/13/24 09:25
Vital Signs
Initial and Last Documented VS:
Initial Vital Signs
Temp Pulse Resp BP Pulse Ox
97.7 F 58 16 150/78 98
08/13/24 08:50 08/13/24 08:50 08/13/24 08:50 08/13/24 08:50 08/13/24 08:50
Last Documented Vital Signs
Temp Pulse Resp BP Pulse Ox
97.7 F 61 26 135/78 95
08/13/24 08:50 08/13/24 13:00 08/13/24 13:00 08/13/24 13:00 08/13/24 13:15
MDM/Problems Addressed
Differential Diagnosis Includes:
Unstable angina, pneumothorax, chest wall pain
MDM/Problems Addressed:
Patient presents with chest pain which sounds fairly concerning for angina. EKG does not show any acute ischemic changes. Initial set of labs are reassuring. However given the patient's convincing story for angina cardiology consultation was
obtained. Dr. Steven came and evaluated the patient and agrees with hospitalization for stress test versus cath. Patient was admitted by the hospitalist.
Chronic conditions affecting care: HTN and CAD
*Radiology
Radiology exam reviewed: preliminary read by ED provider (No acute abnormalities)
*Pulse Oximetry
Patient hypoxic: no
*EKG
Interpreted by ED Provider?: Yes
Interpretation: abnormal
Heart Rate: 51
Rate: bradycardiac
Rhythm: sinus
QRS Pattern: right bundle branch block
Ischemia: non-specific ST changes
*Medical Technologist Generalist Interpretation
Rate: bradycardiac
Interpretation: abnormal
Heart Rate: 51
Rhythm: sinus
*Critical Care Note
Total Time (30-74mins, 75-104mins- exclusive of procedures): Not Applicable
Update Note
Update Note:
1345: Called to room to speak with patient. He has become agitated and is emphaticly expressing his desire to leave. Pt feels he has just been 'laying here with nothing happening'. I explained to the patient that despite how it may feel laying
in the bed there is actually been quite a lot done so far today including a series of blood test including his troponin which is also been repeated. I explained that he has had EKGs, chest x-ray, consultation with pocket stitcher and a evaluation by
the hospitalist. The reason we would like to keep him in the hospital was so we can monitor his heart rate and vital signs. I explained that we feel his chest discomfort is a warning sign that he may have a significant heart attack and we are so
concerned that we feel he needs to stay in the hospital where we can react to any cardiac problems. I explained that by leaving he is putting himself at risk for a serious heart attack which could cause or permanent disability. The patient
was not swayed by my explanation. He stated that 'it is on me' if anything happens but he is confident he will go home and . Patient's was in the room for this conversation. She listened carefully but did not have any input to the
conversation. Hospitalist, Dr. Mesa, also came to speak to the patient and an attempt to convince him to stay but was unsuccessful
ED Attending Note
-
Portions of this chart may have been created with voice recognition software.� Occasional wrong word or��sound alike� substitutions may have occurred due to the inherent limitations of voice recognition software.
Discharge Plan
Departure
Patient Disposition: Against Medical Advice
Date of Disposition: 08/13/24
Time of Disposition: 10:41
Patient with high blood pressure during this ER visit?: No
Condition: Fair
Discharge Problem:
Chest pain, Angina pectoris, unstable
Interventions
Interventions:
*Risk Screen - Suicide Last Done: 08/13/24 08:50
*General Assessment Last Done: 08/13/24 09:23
*Neglect/Abuse Screening Last Done: 08/13/24 08:50
*ED- Fall Risk Assessment Last Done: 08/13/24 09:23
*ED COVID-19 Vaccine History Last Done: 08/13/24 09:23
*Nursing Disposition Last Done: 08/13/24 13:51
ED-Musculoskeletal Assessment Last Done: 08/13/24 09:34
Discharge Date and Time
Discharge Date/Time: 08/13/24 13:51
[2024-08-13] MEDS: NITROSTAT (SUBLINGUAL) 0.4 MG SL (09:21)
[2024-08-13] MEDS: LOW STRENGTH ASPIRIN 324 MG PO (09:22)
[2024-08-13 09:37] LABS: % Basophils 0.5 % (0-2); % Eosinophils 4.8 % (0-6); % Immature Granulocytes 0.2 % (0-0.5); % Lymphocytes 49.8 % (20.5-51.1); % Monocytes 7.5 % (1.7-9.3); % Neutrophils 37.2 % (42.2-75.2); Absolute Eosinophils 0.2 10^3/uL (0-0.7); Absolute Lymphocytes 2.1 10^3/uL (1.2-3.4); Absolute Monocytes 0.3 10^3/uL (0.1-0.6); Absolute Neutrophils 1.5 10^3/uL (1.4-6.5); Hematocrit 38.5 % (39.0-52.0); Hemoglobin 13.1 g/dL (13.0-18.0); Mean Corpuscular Hgb 33.3 pg (27.0-31.0); Mean Platelet Volume 9.4 fL (7.4-10.4); Nucleated Red Blood Cells % 0 % (-); Platelet Count 115 10^3/uL (130-400); Red Blood Cell Count 3.93 10^6/uL (4.70-6.10); Red Cell Dist. Width 13.1 % (11.5-14.5); White Blood Cell Count 4.1 10^3/uL (4.8-10.8)
[2024-08-13 09:52] LABS: ALT (SGPT) 13 U/L (0-50); AST (SGOT) 28 U/L (17-59); Albumin 3.7 g/dl (3.5-5.0); Alkaline Phosphatase 50 U/L (38-126); Blood Urea Nitrogen 10 mg/dl (9-20); Calcium 8.4 mg/dl (8.4-10.2); Carbon Dioxide 25 mmol/L (22-30); Chloride 112 mmol/L (98-107); Estimated Creatinine Clearance 60 ml/min; Glucose 104 mg/dl (70-99); Magnesium 1.9 mg/dl (1.6-2.3); Potassium 4.4 mmol/L (3.5-5.1); Sodium 142 mmol/L (135-145); Total Bilirubin 0.7 mg/dl (0.2-1.3); Total Protein 7.9 g/dl (6.3-8.2); eGFR > 60.00
[2024-08-13 09:59] LABS: Troponin I < 0.012 ng/ml
--- NOTE | 2024-08-13 10:14 | EDRN ---
Dr. Lindquist back in going over results with patient and , plan for repeat troponin at 1200, will continue to monitor
--- NOTE | 2024-08-13 10:34 | CON.CAR ---
Consultation
Consultation Request
Date/Time Consultation Requested: 08/13/24 10:30 AM
Date/Time Consultation Performed: 08/13/2024 10:35 AM
Requesting Provider: Dr. Lindquist
Performing Provider: Dr. Isabel
Reason for Consultation: Chest discomfort
Medical History
-
History of Present Illness:
83-year-old male with past medical history below including coronary artery disease and distant history of myocardial infarction who presents with chest discomfort. Patient is companied by his . Patient's reports that he has memory
impairment. He has a distant history of myocardial infarction and LAD stenting. HI was greater than 25 years ago he has not had any additional HI or need for PCI since that time. He has not had any chest discomfort until this morning. He woke
his this morning saying he had chest discomfort and arm discomfort. And for this reason they went to the emergency department. In the ER he was having persistent symptoms which resolved after nitroglycerin sublingual x 1. In total he had
approximately 30 minutes of chest discomfort. No complaints of shortness of breath palpitations or heart racing no lightheadedness syncope or near syncope no GI complaints including nausea vomiting reflux. No respiratory complaints cough or fever.
Review of systems otherwise unremarkable.
Memory impairment. Could not exactly recall description of chest discomfort. Could not recall duration as well.
He has been following up with his PCP Dr. Busch his make sure he takes his medications which include aspirin 81 mg a day
Distant history of smoking quit at the time of his myocardial infarction over 25 years ago
Previously followed by Dr. Vanegas. Last visit 2017
Past medical history
Dementia
Coronary artery disease, distant history of myocardial infarction. Distant him history of HI and coronary stenting greater than 20 years ago
COPD
heumatoid arthritis
Hyperlipidemia
Hypertension
Cholecystectomy
Hernia repair
Hemorrhoidectomy
Echocardiogram 09/01/2019 ejection fraction 50 to 55% mild to moderate tricuspid regurgitation estimated PA pressure 50 mmHg
Past Medical History
Past Medical History: Other (As above)
Past Surgical History: Other (As above)
Social History
Tobacco: Non-Smoker
Family History
Family History: CAD
Allergies / Home Medications
Allergy/AdvReac Type Severity Reaction Status Date / Time
abciximab [From Reopro] Allergy bleeding Verified 08/13/24 08:51
ticlopidine HCl [From Ticlid] Allergy bleeding Verified 08/13/24 08:51
vancomycin Allergy Renal Verified 08/13/24 08:51
failure
�Medication �Instructions �Recorded �Confirmed �Type
atenolol 25 mg tablet 25 mg PO DAILY Blood pressure 04/05/16 05/15/24 History
atorvastatin 10 mg tablet 10 mg PO HS High cholesterol 11/28/16 05/15/24 History
esomeprazole magnesium 20 mg 20 mg PO DAILY Gastrointestinal 08/12/17 05/15/24 History
capsule,delayed release (Nexium) issue
fenofibrate nanocrystallized 145 72.5 mg PO DAILY High cholesterol 08/31/19 05/15/24 History
mg tablet
levothyroxine 25 mcg tablet 25 mcg PO DAILY Thyroid 08/31/19 05/15/24 History
aspirin 81 mg tablet,delayed 81 mg PO Q48H 05/03/24 05/15/24 History
release
donepezil 5 mg tablet 5 mg PO HS 05/03/24 05/15/24 History
sertraline 50 mg tablet 50 mg PO DAILY 05/03/24 05/15/24 History
docusate sodium 100 mg capsule 100 mg PO DAILY PRN constipation 05/07/24 05/15/24 History
(Colace)
infliximab 100 mg intravenous 0 mg IV Q6W 05/07/24 05/15/24 History
solution (Remicade)
mecobalamin (vitamin B12) 1,000 1,000 mcg PO DAILY 05/07/24 05/15/24 History
mcg chewable tablet (B12 Active)
acetaminophen 325 mg tablet 650 mg (2 x 325 mg) PO Q4HPRN PRN 05/15/24 Rx
mild pain #1 tab
uphpzpheqrkc-kvxkkejk-jmyxjy tablet 1 tab PO DAILY 05/15/24 05/15/24 History
polyethylene glycol 3350 17 gram 17 g PO DAILY constipation 14 days 05/15/24 Rx
oral powder packet #14 packets
Review of Systems
-
All other systems: Negative unless noted
Physical Exam
Vital Signs
Temp Pulse Resp BP Pulse Ox
97.7 F 44 14 125/68 97
08/13/24 08:50 08/13/24 10:00 08/13/24 10:00 08/13/24 10:00 08/13/24 10:00
Lab Results
08/13/24 09:25
08/13/24 09:25
Troponin I < 0.012 ng/ml 08/13/24 09:25
Physical Exam
General: Well Developed, Well Nourished and No Apparent Distress
HEENT: Normocephalic, Anicteric and Other (No JVD no carotid bruit. Poor dentition and missing teeth.)
Respiratory: Other (No wheezes rales or rhonchi)
Cardiac: Regular Rhythm
GI: Soft, Non Distended, Normal Bowel Sounds and Organomegaly (None detected. No masses detected)
Musculoskeletal: No Clubbing, No Cyanosis, No Edema and Other (Palpable DP pulses)
Skin: Other (Warm and dry without rash)
Neuro: Awake and Alert
Hematologic/Lymphatic: Other
Psych: Other (Cooperative)
Impression / Plan
-
.
Chest discomfort. Etiology unclear. Patient with history of coronary artery disease description of chest discomfort with radiation down arm and relieved with nitroglycerin raise concern for angina. ECG without ischemic changes and first troponin
negative.
- Known history of coronary artery disease with distant history of HI and coronary stenting greater than 20 years ago
- Not seen by stock repairer since his visit with Dr. Vanegas back in 2018
-Admit for further observation
-Continue aspirin 81 mg a day
-Serial troponins
-If significant elevation in troponin or issues with recurrent chest discomfort then would add IV heparin
-If issues with significant troponin elevation or recurrent symptoms would consider cardiac catheterization this admission otherwise would plan for Lexiscan nuclear perfusion stress test
.
Hypertension -stable continue current therapy
.
Hypercholesterolemia-statin atorvastatin. Would favor higher intensity statin
.
Rheumatoid arthritis. Treatment directed by primary team
.
COPD. Respiratory status stable.
.
Bradycardia. Asymptomatic sinus bradycardia
.
Right bundle branch block. Chronic
Data Reviewed
-
EKG: Tracing Personally Visualized and interpreted
Radiology: Report Reviewed by me
Medical Tests (Nuc Med, Echo etc): Report Reviewed by me
Labs: Labs Reviewed by me
--- NOTE | 2024-08-13 11:05 | EDRN ---
Cardiology at bedside talking to patient and
--- NOTE | 2024-08-13 12:43 | HPS.HSE ---
Family Physician
-
Family Physician: Cheikh Busch
Chief Complaint
-
Chest pain
History of Present Illness
Mr. Holguin is an 83-year-old male with medical history of CAD (MT with PCI to LAD more than 25 years ago), hypertension, COPD, rheumatoid arthritis, and dementia who presented with chest pain. He is accompanied by his . He woke up this morning
with chest and left arm pain. He has not had any cardiac problems since his prior MT with PCI many years ago. He denied any shortness of breath, abdominal pain, nausea or vomiting. He has not seen a mobile patrol officer since 2018. He does follow-up
regularly with his PCP.
In the ED his chest pain resolved after administration of sublingual nitroglycerin. He has remained normotensive with a heart rate around 50. Labs were generally unremarkable with undetectable initial troponin and second troponin within normal
limits. No acute changes on EKG. He was given a full-strength aspirin. He has been evaluated by cardiology in the ED and will be admitted for further observation and management.
Medical History
Past Medical History
Past Medical History: Reports CAD (MT with PCI to LAD), COPD, Dementia, HTN and Other (Rheumatoid arthritis (on infliximab))
Past Surgical History: Reports Cholecystectomy and Other (Hernia repair, hemorrhoidectomy)
Social History
Tobacco: Non-smoker
Alcohol: Occasional
Drug: None
Personal:
Living: With Family
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
Family History
Family History: CAD
Allergies / Home Medications
Allergies reflects when Allergies were last updated in [facility].
Home Medications with original date entered in [facility]
Allergy/Medication List:
Allergies
Allergy/AdvReac Type Severity Reaction Status Date / Time
abciximab [From Reopro] Allergy bleeding Verified 08/13/24 08:51
ticlopidine HCl [From Ticlid] Allergy bleeding Verified 08/13/24 08:51
vancomycin Allergy Renal Verified 08/13/24 08:51
failure
Home Medications
atenolol 25 mg tablet 25 mg PO DAILY Blood pressure 04/05/16
atorvastatin 10 mg tablet 10 mg PO HS High cholesterol 11/28/16
esomeprazole magnesium 20 mg capsule,delayed release (Nexium) 20 mg PO DAILY Gastrointestinal issue 08/12/17
fenofibrate nanocrystallized 145 mg tablet 72.5 mg PO DAILY High cholesterol 08/31/19
levothyroxine 25 mcg tablet 25 mcg PO DAILY Thyroid 08/31/19
aspirin 81 mg tablet,delayed release 81 mg PO Q48H 05/03/24
sertraline 50 mg tablet 50 mg PO DAILY 05/03/24
infliximab 100 mg intravenous solution (Remicade) 0 mg IV Q6W 05/07/24
hgvwbsqemevz-efntkwjy-fygshs tablet 1 tab PO DAILY 05/15/24
diphenhydramine 25 mg-acetaminophen 500 mg tablet (Acetaminophen PM) 2 tab PO HSPRN PRN sleep 08/13/24
Review of Systems
-
History Source: Patient
A 12 point ROS was completed and negative except as noted: Yes
Physical Exam
Vital Signs
Vital Signs
Temp Pulse Resp BP Pulse Ox
97.7 F 47 13 139/79 98
08/13/24 08:50 08/13/24 12:15 08/13/24 12:15 08/13/24 12:00 08/13/24 12:15
Physical Exam
General: No Apparent Distress
Laboratory Results
-
08/13/24 09:25
08/13/24 09:25
Laboratory Results
Total Bilirubin 0.7 mg/dl (0.2-1.3) 08/13/24 09:25
AST 28 U/L (17-59) 08/13/24 09:25
ALT 13 U/L (0-50) 08/13/24 09:25
Alkaline Phosphatase 50 U/L (38-126) 08/13/24 09:25
Troponin I 0.020 ng/ml D 08/13/24 11:51
Impression/Plan
-
General: No Apparent Distress, Comfortable and Conversant
HEENT: NormoCephalic, Moist mucous membranes, Atraumatic, multiple missing teeth
Respiratory: Clear and Non Labored Respirations
Cardiac: S1/S2 and Regular Rhythm; No Rub or Gallop
GI: Soft, Non Tender, Non Distended and Normal Bowel Sounds
Musculoskeletal: No Edema, no deformity
Skin: Warm and dry
: NO [place]
Neuro: Awake, Alert, Nonfocal/grossly intact
Psych: Calm and cooperative
Mr. Holguin is an 83-year-old male with medical history of CAD (MT with PCI to LAD more than 25 years ago), hypertension, COPD, rheumatoid arthritis, and dementia who presented with chest pain. He is accompanied by his . He woke up this morning
with chest and left arm pain. He has not had any cardiac problems since his prior MT with PCI many years ago. He denied any shortness of breath, abdominal pain, nausea or vomiting. He has not seen a mobile patrol officer since 2018. He does follow-up
regularly with his PCP.
In the ED his chest pain resolved after administration of sublingual nitroglycerin. He has remained normotensive with a heart rate around 50. Labs were generally unremarkable with undetectable initial troponin and second troponin within normal
limits. No acute changes on EKG. He was given a full-strength aspirin. He has been evaluated by cardiology in the ED and will be admitted for further observation and management.
Chest pain:
- Currently pain-free after sublingual nitro in the ED
- First troponin undetectable, second troponin within normal limits (0.02), continue trending
- Monitor on telemetry
- Tentative plan for stress test in the morning, n.p.o. after midnight
- If symptoms return or troponins become significantly elevated will start IV heparin drip
- Appreciate cardiology guidance
- Continue low-dose aspirin daily and statin
Hypertension:
- Chronic, stable
- Continue home atenolol
Bradycardia:
- Chronic, stable
- Continue telemetry monitoring
COPD:
- Currently stable
Rheumatoid arthritis:
- Outpatient infliximab every 6 weeks
DVT prophylaxis: Subcu heparin
CODE STATUS: Full code
Total time spent on today's encounter was 57 minutes
--- NOTE | 2024-08-13 13:48 | EDRN ---
Patient ripped off his monitor yelling that he is leaving he is tired of being here and is bored, offered to put on a movie, he said he was tired of laying there, offered to place him in a chair, left room to talk to Dr. Lindquist, when re-entering
the room, patient is completely dress stating he is leaving, informed him he has an IV that I have to remove, Dr. Lindquist in at bedside talking with patient going over why it is important that he stays and he still does not want to stay, patient
signed AMA paperwork, the hospitalist also came to speak to patient. Patient insists on leaving, gave Cardiology information for him to call and follow up and they are aware to come back if chest pain increases or any need for medical
attention. Patient ambulated out of the department with steady gait and with his .
--- NOTE | 2024-08-13 14:01 | W.DCSUMMARY ---
Discharge Summary
Discharge Data
Date of Admission: 08/13/24
Date of Discharge: 08/13/24
Total time spent discharging patient (in min): 40
-
Pending Results: No
Hospital Course
Mr. Holguin is an 83-year-old male with medical history of CAD (ND with PCI to LAD more than 25 years ago), hypertension, COPD, rheumatoid arthritis, and dementia who presented with chest pain. He is accompanied by his . He woke up this morning
with chest and left arm pain. He has not had any cardiac problems since his prior ND with PCI many years ago. He denied any shortness of breath, abdominal pain, nausea or vomiting. He has not seen a director of rooms since 2018. He does follow-up
regularly with his PCP.
In the ED his chest pain resolved after administration of sublingual nitroglycerin. He has remained normotensive with a heart rate around 50. Labs were generally unremarkable with undetectable initial troponin and second troponin within normal
limits. No acute changes on EKG. He was given a full-strength aspirin. He has been evaluated by cardiology in the ED and was admitted for further observation and management.
However the patient decided to leave AGAINST MEDICAL ADVICE. He was advised about the risks of leaving without completing his evaluation, including the potential risk of . He acknowledged these risks. His remained present during these
conversations and also acknowledged the risks. They were advised to return for further management if they change their mind.
General: No Apparent Distress, Comfortable and Conversant
HEENT: NormoCephalic, Moist mucous membranes, Atraumatic, multiple missing teeth
Respiratory: Clear and Non Labored Respirations
Cardiac: S1/S2 and Regular Rhythm; No Rub or Gallop
GI: Soft, Non Tender, Non Distended and Normal Bowel Sounds
Musculoskeletal: No Edema, no deformity
Skin: Warm and dry
: NO [place]
Neuro: Awake, Alert, Nonfocal/grossly intact
Psych: Calm and cooperative
Discharge Plan
-
Patient Disposition: Against Medical Advice
Discharge Diagnosis/Procedures: Chest pain
Diet: Low Cholesterol
Activity: As tolerated
Activity Restrictions/Additional Instructions:
Mr. Holguin is an 83-year-old male with medical history of CAD (ND with PCI to LAD more than 25 years ago), hypertension, COPD, rheumatoid arthritis, and dementia who presented with chest pain. He is accompanied by his . He woke up this morning
with chest and left arm pain. He has not had any cardiac problems since his prior ND with PCI many years ago. He denied any shortness of breath, abdominal pain, nausea or vomiting. He has not seen a director of rooms since 2018. He does follow-up
regularly with his PCP.
In the ED his chest pain resolved after administration of sublingual nitroglycerin. He has remained normotensive with a heart rate around 50. Labs were generally unremarkable with undetectable initial troponin and second troponin within normal
limits. No acute changes on EKG. He was given a full-strength aspirin. He has been evaluated by cardiology in the ED and was admitted for further observation and management.
However the patient decided to leave AGAINST MEDICAL ADVICE. He was advised about the risks of leaving without completing his evaluation, including the potential risk of . He acknowledged these risks. His remained present during these
conversations and also acknowledged the risks. They were advised to return for further management if they change their mind.
Referrals:
Cheikh Busch MD [Family Provider] -
Prescriptions:
Continued
atenolol 25 MG tablet
25 mg PO DAILY
atorvastatin 10 MG tablet
10 mg PO HS
esomeprazole magnesium [Nexium] 20 MG capsule,delayed release(DR/EC)
20 mg PO DAILY
fenofibrate nanocrystallized 145 MG tablet
72.5 mg PO DAILY
levothyroxine 25 MCG tablet
25 mcg PO DAILY
aspirin 81 mg Tablet,Delayed Release (Dr/Ec)
81 mg PO Q48H
sertraline 50 mg Tablet
50 mg PO DAILY
infliximab [Remicade] 100 mg Recon Soln
0 mg IV Q6W
jfscmcsrnnma-jpjubtmy-jdcznq Tablet
1 tab PO DAILY
diphenhydramine-acetaminophen [Acetaminophen PM] 25-500 mg Tablet
2 tab PO HSPRN PRN (Reason: sleep)
Discharge Orders:
Discharge Patient (As Directed); Ordered 08/13/24
Ordered By: Kavin Mesa
Discharge Date and Time
Print Language: MOHAWK
== END 2024-08-13 14:00 | disposition left against medical advice (07) ==
LOC: ED 13:10
PROVIDERS: ADMITTING PHYSICIAN Internal Medicine; CONSULT PHYSICIAN Internal Medicine Cardiovascular Disease; EMERGENCY PHYSICIAN Emergency Medicine; FAMILY PHYSICIAN Family Medicine
DX: R07.9 Chest pain, unspecified (principal); Z87.891 Personal history of nicotine dependence; M79.602 Pain in left arm; I25.110 Atherosclerotic heart disease of native coronary artery with unstable angina pectoris; M06.9 Rheumatoid arthritis, unspecified; I10 Essential (primary) hypertension; J44.9 Chronic obstructive pulmonary disease, unspecified; Z79.82 Long term (current) use of aspirin
CPT/HCPCS: 71046; 80053; 83735; 84484; 85025; 93005; G0378

== ENCOUNTER → 2025-01-06 09:02 | Outpatient (REF) | payer OTHER, SELFPAY ==
[2025-01-06 10:31] LABS: Hematocrit 39.7 % (39.0-52.0); Hemoglobin 13.0 g/dL (13.0-18.0); Mean Corp Hgb Conc. 32.7 g/dL (33.0-37.0); Mean Corpuscular Volume 97.8 fL (80.0-94.0); Nucleated Red Blood Cells % 0 % (-); Platelet Count 116 10^3/uL (130-400); Red Cell Dist. Width 13.5 % (11.5-14.5)
== END ==
LOC: REG 09:02
PROVIDERS: ATTENDING PHYSICIAN Internal Medicine Hematology & Oncology; FAMILY PHYSICIAN Family Medicine
DX: M06.9 Rheumatoid arthritis, unspecified (principal); D46.A Refractory cytopenia with multilineage dysplasia
CPT/HCPCS: 36415; 85025

== ENCOUNTER → 2025-02-12 08:34 | Outpatient (REF) | payer OTHER, SELFPAY ==
[2025-02-12 09:35] LABS: Hematocrit 40.3 % (39.0-52.0); Hemoglobin 13.4 g/dL (13.0-18.0); Mean Corp Hgb Conc. 33.3 g/dL (33.0-37.0); Mean Corpuscular Volume 98.5 fL (80.0-94.0); Nucleated Red Blood Cells % 0 % (-); Platelet Count 141 10^3/uL (130-400); Red Cell Dist. Width 12.8 % (11.5-14.5)
[2025-02-12 10:27] LABS: ALT (SGPT) 12 U/L (0-50); AST (SGOT) 25 U/L (17-59); Albumin 4.0 g/dl (3.5-5.0); Alkaline Phosphatase 66 U/L (38-126); Blood Urea Nitrogen 13 mg/dl (9-20); Calcium 8.7 mg/dl (8.4-10.2); Carbon Dioxide 27 mmol/L (22-30); Chloride 107 mmol/L (98-107); Glucose 106 mg/dl (70-99); HDL Cholesterol 46 mg/dl; LDL Cholesterol, Calculated 72 mg/dl; Potassium 4.1 mmol/L (3.5-5.1); Sodium 138 mmol/L (135-145); Total Protein 8.7 g/dl (6.3-8.2); Very Low Density Lipoprotein 29 mg/dl (0-30); eGFR > 60.00
[2025-02-12 10:31] LABS: C-Reactive Protein 10.50 mg/L (0.0-10.00)
== END ==
LOC: REG 08:34
PROVIDERS: ATTENDING PHYSICIAN Nurse Practitioner; FAMILY PHYSICIAN Family Medicine; REFERRING PHYSICIAN Internal Medicine Rheumatology
DX: E78.5 Hyperlipidemia, unspecified (principal); Z51.81 Encounter for therapeutic drug level monitoring
CPT/HCPCS: 36415; 80053; 80061; 85025; 86140